=== PATIENT | male | born 1960 | race Caucasian/White ===

== ENCOUNTER 2024-05-28 07:59 | Outpatient (CLI) | payer OTHER, SELFPAY ==
--- NOTE | 2024-05-28 | CA_ITS ---
FINAL REPORT TECHNIQUE: Color Doppler, duplex Doppler and compression sonography of the left lower extremity deep venous systems was performed. 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 There is thrombosis of a portion of the left greater saphenous vein, in what appears to be a superficial varicosity in the mid thigh. IMPRESSION: No evidence of deep venous thrombosis left lower extremity. Thrombosis of a portion of the left greater saphenous vein as described above. The reliability technologist notified the ordering provider. Reviewed, Interpreted and Dictated by José Manuel Arreguin III, MD Transcribed by Alba Kelley Authenticated and [facility]
== END 2024-05-28 23:59 | disposition home or self-care (01) ==
LOC: RT 08:02
PROVIDERS: PCP Family Medicine; Visit Provider Nurse Practitioner
DX: M79.89 Other specified soft tissue disorders (principal); M79.605 Pain in left leg
CPT/HCPCS: 93971